=== PATIENT | female | born 1995 | race Caucasian/White ===

== ENCOUNTER 2017-10-12 15:19 | Emergency (ER) | payer OTHER ==
[2017-10-12 15:38] VITALS: BP 100/59
--- NOTE | 2017-10-12 15:55 | UC ---
Neck Pain HPI - HPI Summary HPI Summary: Pt c/o intermittent lymphadenopathy to right submandibular lymph node that pt states "reacts" when I she eats food. Pt reports that this issue began when she was in - History of Current Complaint Chief Complaint: UCGeneralIllness Stated Complaint: SWOLLEN GLAND Time Seen by Provider: 10/12/17 15:36 Hx Obtained From: Patient Hx Last Menstrual Period: JUL 2015 ?: No Mechanism Of Injury: No Known Trauma Timing: Intermittent Episodes Onset/Duration: Gradual Onset, Still Present Severity: Mild Location: Discrete At: - right submandibular lymph node Character: Sharp, Dull Aggravating Factors: Other: - eating Alleviating Factors: Nothing Associated Signs & Symptoms: Positive: Swelling - Risk Factors Meningitis Risk Factors: Negative - Allergies/Home Medications Allergies/Adverse Reactions: Allergies Allergy/AdvReac Type Severity Reaction Status Date / Time No Known Allergies Allergy Verified 10/12/17 15:38 PMH/Surg Hx/FS Hx/Imm Hx Previously Healthy: Yes Other History Of: Negative For: HIV, Hepatitis B, Hepatitis C - Surgical History Surgical History: Yes Surgery Procedure, Year, and Place: TONSILECTOMY - Family History Known Family History: Positive: Diabetes - Social History Occupation: Employed Full-time Lives: With Family Alcohol Use: None Substance Use Type: None Smoking Status (MU): Never Smoked Tobacco Have You Smoked in the Last Year: No Review Of Systems Constitutional: Positive: Negative Skin: Positive: Negative Eyes: Positive: Negative ENT: Positive: Other - lymphadenopathy Respiratory: Positive: Negative Cardiovascular: Positive: Negative Gastrointestinal: Positive: Negative Genitourinary: Positive: Negative Musculoskeletal: Positive: Negative Neurological: Positive: Negative Psychological: Positive: Negative All Other Systems Reviewed And Are Negative: Yes Physical Exam Triage Information Reviewed: Yes Appearance: Well-Appearing Vital Signs: Initial Vital Signs Temp 99.9 F 10/12/17 15:33 Pulse 77 10/12/17 15:33 Resp 16 10/12/17 15:33 BP 100/59 10/12/17 15:33 Pulse Ox 100 10/12/17 15:33 Vital Signs Reviewed: Yes Eye Exam: Normal ENT Exam: Normal Dental Exam: Other Dental: Positive: Other: - poor dentition Neck exam: Other Neck: Positive: Enlarged Nodes @ - right submandibular ~ 1.5 cm in diameter Respiratory Exam: Normal Cardiovascular Exam: Normal Musculoskeletal Exam: Normal Neurological Exam: Normal Psychological Exam: Normal Skin Exam: Normal Neck Pain Course/Dx - Differential Dx/Diagnosis Differential Dx/HQI/PQRI: Other - lymphadenopathy, salvary gland stone, blockage Provider Diagnoses: lymphadenopathy Discharge - Discharge Plan Condition: Stable Disposition: HOME Patient Education Materials: Lymphadenopathy (ED) Referrals: [facility] [place] [facility] REFERRAL [Outside] No Primary Care Phys,NOPCP [Primary Care Provider] - Additional Instructions: Please establish care with a PCP as soon as possible to follow up with your current complaint of lymphadenopathy.
== END 2017-10-12 16:07 | disposition home or self-care (01) ==
LOC: UCCORT 15:19
DX: R59.1 Generalized enlarged lymph nodes (principal)
CPT/HCPCS: 99211; G0463

== ENCOUNTER 2018-05-09 10:13 | Emergency (ER) | payer OTHER ==
--- OUTSIDE RECORDS SUMMARY | 2018-05-09 10:32 | XMS REPORT ---
:1995 External Reference #:[id number] Author Organization [facility] Address [address], [address] [place] [address] Phone [phone] Care Team Providers Name Role Phone Gomez Mcpherson MD Care Team Information Silk Screen Operator Unavailable Radha Jo MD Primary Care Physician Unavailable Payers Type Date Identification Numbers Payment Provider Subscriber Commercial Policy Number: [id number] [employer] Zoraida Schmidt PayID: [id number] [address] [place] [address] Problems Date Description Provider Status Onset: 03/09/2018 Cyst of left ovary Radha Jo MD Active Onset: 03/09/2018 Oropharyngeal dysphagia Radha Jo MD Active Onset: 03/09/2018 Constipation Radha Jo MD Active Onset: 03/28/2018 Gynecologic examination Barbara Helm CNM Active Family History Date Family Member(s) Problem(s) Comments Father Migraine Mother Heart Disease Social History Type Date Description Comments Marital Status Single Lives With Family Diet Patient follows no dietary restrictions Occupation Unemployed ETOH Use Rarely consumes alcohol Smoking Patient denies history of smoking Recreational Drug Use Denies Drug Use Daily Caffeine Current Caffeine User Contraceptive Methods Nexplanon Age 1st Joanna 16 Years Old # Partners in a Lifetime 1 STD's Genital Herpes Allergies, Adverse Reactions, Alerts Date Description Reaction Status Severity Comments 03/04/2018 NKDA active Medications Medication Date Status Form Strength Qnty SIG Indications Ordering Provider Colace 03/09/ Active Capsules 100mg 60caps 1 by mouth Radha 2018 twice daily as Sandro, needed for MD constipation No Active 06/06/ Hx Unknown Medications 2017 - 2017 Vital Signs Date Vital Result Comment 05/03/2018 BP Systolic 101 mmHg BP Diastolic 66 mmHg Body Temperature 98.6 F Heart Rate 76 /min Respiratory Rate 16 /min Height 63.25 inches 5'3.25" Weight 129.00 lb BMI (Body Mass Index) 22.7 kg/m2 BSA (Body Surface Area) 1.61 m2 [place] body weight in kilograms 53 O2 % BldC Oximetry 98 % 03/28/2018 BP Systolic 100 mmHg BP Diastolic 52 mmHg Body Temperature 98.2 F Heart Rate 70 /min Respiratory Rate 16 /min Height 63.25 inches 5'3.25" Weight 129.00 lb BMI (Body Mass Index) 22.7 kg/m2 BSA (Body Surface Area) 1.61 m2 [place] body weight in kilograms 53 O2 % BldC Oximetry 99 % 03/09/2018 BP Systolic Sitting Right Arm 107 mmHg BP Diastolic Sitting Right Arm 67 mmHg Body Temperature 98.7 F Heart Rate 67 /min Respiratory Rate 20 /min Height 63.25 inches 5'3.25" Weight 126.00 lb BMI (Body Mass Index) 22.1 kg/m2 BSA (Body Surface Area) 1.59 m2 [place] body weight in kilograms 53 O2 % BldC Oximetry 98 % Results Test Date Test Result H/L Range Note Throat Culture 03/09/2018 Throat Culture NORMAL THROAT FL 1, 2 Complete Complete <SEE NOTE> Urine Dipstick 03/09/2018 Ua Color [place] Yellow Ua Clarity Clear Clear Ua Leuko Negative Negative Ua Nitrite Negative Negative Ua Urobilinogen 0.2 0.2 - 1.0 E.U./dL Ua Protein Positive (+) Negative Ua PH 7.0 6.5-7.5 Ua Blood Positive (+++) Negative Ua Specific [place] 1.010 1.010-1.030 Ua Ketones Negative Negative Ua Bilirubin Negative Negative Ua Glucose Negative Negative 1 J02.9 2 NORMAL THROAT PREETI Procedures Date CPT Code Description Status 04/21/2013 75009 Holter Monitor 24HR Inter/Report Completed 03/15/2007 89964 Fracture-closed finger or thumb Completed Encounters Type Date Location Provider CPT E/M Dx Office Visit 03/09/2018 8:40a [place] [address] N83.292 R13.13 K59.00 Office Visit 05/05/2007 9:30a [place] [address] 732.4 Office Visit 02/08/2007 2:45p [place] [address] 732.4 Office Visit 11/11/2006 10:00a [place] [address] 732.4 Office Visit 10/07/2006 9:45a [place] [address] 732.4 Plan of Care Future Appointment(s):05/18/2018 10:00 am - Radha Jo MD at Primary Care [id number]/03/2018 - Barbara Helm, CNMN83.201 Unspecified ovarian cyst, right sideNew Xrays:Ultrasound, Pelvic W/ Endovaginal Non-OBComments:L ovarian cyst resolved R ovarian cyst seen on sono 2.9 x 2.1 x 2.7 cm.Discussed result with pt.Happy with Nexplanon.Intermittent pelvic pain with intercourse has improved with awareness to position and NSAIDs if needed.Agrees to repeat sono in Jul 2018.
--- OUTSIDE RECORDS SUMMARY | 2018-05-09 10:32 | XMS REPORT ---
:1995 External Reference #:[id number] Author Organization [facility] Address [address], [address] [place] [address] Phone [phone] Care Team Providers Name Role Phone Gomez Mcpherson MD Care Team Information Public Affairs Officer Unavailable Radha Jo MD Primary Care Physician Unavailable Payers Type Date Identification Numbers Payment Provider Subscriber Commercial Policy Number: [id number] [employer] Zoraida Schmidt PayID: [id number] [address] [place] [address] Problems Date Description Provider Status Onset: 03/09/2018 [...] Caffeine User Contraceptive Methods Nexplanon Age 1st [place] 16 Years Old # Partners in a [...] 2017 Vital Signs Date Vital Result Comment 03/28/2018 BP Systolic 100 mmHg BP Diastolic 52 mmHg Body Temperature 98.2 F Heart Rate 70 /min Respiratory Rate 16 /min Height 63.25 inches 5'3.25" Weight 129.00 lb BMI (Body Mass Index) 22.7 kg/m2 BSA (Body Surface Area) 1.61 m2 [place] body weight in kilograms 53 O2 % BldC Oximetry 99 % 03/09/2018 BP Systolic Sitting Right Arm 107 mmHg BP Diastolic Sitting Right Arm 67 mmHg Body Temperature 98.7 F Heart Rate 67 /min Respiratory Rate 20 /min Height 63.25 inches 5'3.25" Weight 126.00 lb BMI (Body Mass Index) 22.1 kg/m2 BSA (Body Surface Area) 1.59 m2 [place] body weight in kilograms 53 O2 % [...] Ua Blood Positive (+++) Negative Ua Specific [place] 1.010 1.010-1.030 Ua Ketones Negative Negative Ua Bilirubin Negative Negative Ua Glucose Negative Negative 1 J02.9 2 NORMAL THROAT PREETI Procedures Date CPT Code Description Status 04/21/2013 27868 Holter Monitor 24HR Inter/Report Completed 03/15/2007 44287 Fracture-closed finger or thumb Completed Encounters Type Date Location Provider CPT E/M Dx Office Visit 03/09/2018 8:40a [place] [address] N83.292 R13.13 K59.00 Office Visit 05/05/2007 9:30a [place] [address] 732.4 Office Visit 02/08/2007 2:45p [place] [address] 732.4 Office Visit 11/11/2006 10:00a [place] [address] 732.4 Office Visit 10/07/2006 9:45a [place] [address] 732.4 Plan of Care Future Appointment(s):05/18/2018 10:00 am - Radha Jo MD at Primary Care [id number]/28/2018 - Barbara Helm [id number] 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 Fu in 4 weeks with repeat pelvic sonogram.
[2018-05-09 10:45] VITALS: BP 116/52
[2018-05-09] MEDS ORDERED: Fluorescein Sod TOPICAL 0.6* 0.6 MG TEST OPHTHALMIC ONE (10:50)
[2018-05-09] MEDS ORDERED: BSS OPTH.SOL* BTL ONE (10:50)
[2018-05-09] MEDS ORDERED: Tetracaine 0.5% OPTH.SOL 4 ML* 1 DROP BTL ONE (10:50)
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
== END 2018-05-09 11:28 | disposition home or self-care (01) ==
LOC: UCCORT 10:13
DX: S05.8X1A Other injuries of right eye and orbit, initial encounter (principal); W50.0XXA Accidental hit or strike by another person, initial encounter; Y93.89 Activity, other specified; Y92.009 Unspecified place in unspecified non-institutional (private) residence as the place of occurrence of the external cause
CPT/HCPCS: 99212; A9270-GY; G0463

== ENCOUNTER 2023-05-21 17:39 | Inpatient (IN) ==
[2023-05-21] MEDS ORDERED: Buffered Lidocaine 1% SYRIN 1 ml INTRADERM ONE (17:58)
[2023-05-21] MEDS ORDERED: Dinoprostone 10 MG VAG.SUPP VAGINAL ONE (17:58)
[2023-05-21] MEDS ORDERED: Promethazine INJ(RESTRICTED) 25 MG/ML 1 ml VIAL IV PRN (17:58)
[2023-05-21] MEDS ORDERED: Lactated Ringers 1000 ml BAG 1,000 ML IV ONE (17:58)
[2023-05-21 19:16] LABS: Urine Benzodiazepine Screen None Detected (None Detect); Urine Opiates Screen None Detected (None Detect)
[2023-05-22 08:39] LABS: ABS Lymphocytes 1.4 10^3/uL (1.0-4.8); ABS Monocytes 0.6 10^3/uL (0.0-0.9); ABS Neutrophils 7.6 10^3/uL (1.5-7.6); Eosinophil % 0.4 %; Hematocrit 38.1 % (35-45); Lymphocyte % 14.5 %; Mean Corpuscular Hemoglobin 28.8 pg (27-33); Mean Corpuscular Volume 84.7 fL (80-97); Mean Platelet Volume 9.9 fL (7.5-11.2); Nucleated Red Blood Cells % 0.1 /100 WBC (0.0-0.4); Platelet Count 140 10^3/uL (150-450); White Blood Count 9.6 10^3/uL (3.8-11.8)
[2023-05-22] MEDS ORDERED: OBEPIDURAL (200 ML) 200 ML EPIDURAL ONE (08:54)
[2023-05-22] MEDS ORDERED: Lidocaine 1% w EPI 1:200,000 SDV 30 ML VIAL ONE (08:54)
[2023-05-22] MEDS: Lactated Ringers 1000 ml BAG 1,000 ML IV SCH ×2 (09:05→09:34)
[2023-05-22] MEDS ORDERED: Lactated Ringers 1000 ml BAG 500 ML IV PRN ×2 (09:45)
[2023-05-22] MEDS ORDERED: Phenylephrine 40 mcg/mL 10mL (400mcg) SYRINGE IV PUSH PRN ×2 (09:45)
[2023-05-22] MEDS ORDERED: Sodium Citrate/Citric Acid LIQ 15 ML UDC PO PRN (09:45)
[2023-05-22] MEDS ORDERED: Lactated Ringers 1000 ml BAG 1,000 ML IV ONE (09:45)
[2023-05-22] MEDS ORDERED: Lactated Ringers 1000 ml BAG 1,000 ML IV SCH ×2 (10:00→16:00)
[2023-05-22] MEDS ORDERED: OBEPIDURAL (200 ML) 200 ML EPIDURAL SCH (10:00)
[2023-05-22 10:16] LABS: Urine Appearance Clear; Urine Bilirubin Negative (Negative); Urine Blood Negative (Negative); Urine Color Straw; Urine Glucose Negative (Negative); Urine Ketones Trace (Negative); Urine Nitrite Negative (Negative); Urine Protein Negative (Negative); Urine Specific Gravity 1.005 (1.002-1.030); Urine Urobilinogen Negative (Negative)
[2023-05-22] MEDS ORDERED: Oxytocin in LR 20,000 MILLI.UNIT/1,000 ML BAG IV SCH ×2 (12:55→16:00)
[2023-05-22 13:07] LABS: Hepatitis B Surface Antigen Nonreactive (Nonreactive)
[2023-05-22] MEDS ORDERED: Lidocaine 1% VIAL 10 MG/ML 30 ML VIAL ONE (15:39)
[2023-05-22] MEDS: Witch Hazel PAD JAR TOPICAL PRN (17:32)
[2023-05-22] MEDS: Dibucaine 1% OINT 28.35 GM TUBE PR PRN (17:32)
[2023-05-23 07:30] LABS: ABS Eosinophils 0.1 10^3/uL (0.0-0.5); ABS Lymphocytes 1.3 10^3/uL (1.0-4.8); ABS Monocytes 0.6 10^3/uL (0.0-0.9); Eosinophil % 0.8 %; Hematocrit 34.5 % (35-45); Hemoglobin 11.9 g/dL (11.5-14.3); Mean Corpuscular Hemoglobin 29.5 pg (27-33); Mean Corpuscular Hgb Conc 34.5 g/dL (31-36); Mean Corpuscular Volume 85.5 fL (80-97); Mean Platelet Volume 9.7 fL (7.5-11.2); Platelet Count 129 10^3/uL (150-450); Red Blood Count 4.04 10^6/uL (3.63-4.92); Red Cell Distribution Width 14.2 % (12-17)
[2023-05-23 11:53] VITALS: BP 115/67
[2023-05-23] MEDS: Witch Hazel PAD JAR TOPICAL PRN (14:31)
[2023-05-23] MEDS: Dibucaine 1% OINT 28.35 GM TUBE PR PRN (14:31)
== END 2023-05-23 18:25 | disposition home or self-care (01) | DRG 560 ==
LOC: MCHOBOUT 17:39 → MCHOB 18:12
PROVIDERS: ADMIT Registered Nurse; ATTEND Registered Nurse

== ENCOUNTER 2024-09-06 10:50 | Inpatient (IN) ==
[2024-09-06] MEDS ORDERED: Lidocaine 1% VIAL 10 MG/ML 30 ML VIAL INJ PRN (11:36)
[2024-09-06 13:05] LABS: Hematocrit 37.2 % (35-45); Hemoglobin 12.5 g/dL (11.5-14.3); Mean Corpuscular Hemoglobin 28.3 pg (27-33); Mean Corpuscular Hgb Conc 33.5 g/dL (31-36); Mean Corpuscular Volume 84.3 fL (80-97); Red Blood Count 4.41 10^6/uL (3.63-4.92); Red Cell Distribution Width 15.2 % (12-17); White Blood Count 8.4 10^3/uL (3.8-11.8)
[2024-09-06 13:20] LABS: Urine Benzodiazepine Screen None Detected (None Detect); Urine Cannabinoids Screen None Detected (None Detect); Urine Opiates Screen None Detected (None Detect)
[2024-09-06 13:25] LABS: ABS Eosinophils 0.1 10^3/uL (0.0-0.5); ABS Lymphocytes 1.4 10^3/uL (1.0-4.8); ABS Monocytes 0.6 10^3/uL (0.0-0.9); ABS Neutrophils 6.4 10^3/uL (1.5-7.6); Eosinophil % 0.8 %; Lymphocyte % 16.2 %; Mean Platelet Volume 10.1 fL (7.5-11.2); Nucleated Red Blood Cells % 0.1 %/100WBC (0.0-0.8); Platelet Count 154 10^3/uL (150-450)
[2024-09-06] MEDS: Lactated Ringers 1000 ml BAG 1,000 ML IV SCH ×2 (16:13→22:59)
[2024-09-06] MEDS: Oxytocin in LR 20,000 MILLI.UNIT/1,000 ML BAG IV SCH (17:54)
[2024-09-06] MEDS: OBEPIDURAL (200 ML) 200 ML EPIDURAL ONE (19:08)
[2024-09-06] MEDS ORDERED: Phenylephrine 40 mcg/mL 10mL (400mcg) SYRINGE IV PUSH PRN ×2 (19:25)
[2024-09-06] MEDS ORDERED: Sodium Citrate/Citric Acid LIQ 15 ML UDC PO PRN (19:25)
[2024-09-06 20:32] LABS: Urine Appearance Clear; Urine Bilirubin Negative (Negative); Urine Blood Negative (Negative); Urine Color Colorless; Urine Glucose Negative (Negative); Urine Ketones Negative (Negative); Urine Nitrite Negative (Negative); Urine Protein Negative (Negative); Urine Specific Gravity 1.005 (1.002-1.030); Urine Urobilinogen Negative (Negative); Urine pH 6.5 (5.0-8.0)
[2024-09-06] MEDS: Lactated Ringers 1000 ml BAG 1,000 ML IV ONE (21:18)
[2024-09-06] MEDS: Lidocaine/Epinephrin 1.5%/200 5 ML AMP INJ ONE (22:59)
[2024-09-06] MEDS: OBEPIDURAL (200 ML) 200 ML EPIDURAL SCH (22:59)
[2024-09-06] MEDS ORDERED: Lactated Ringers 1000 ml BAG 1,000 ML IV SCH (23:00)
[2024-09-06] MEDS: Phenylephrine 40 mcg/mL 10mL (400mcg) SYRINGE ONE (23:00)
[2024-09-06] MEDS: miSOPROStol 100 mcg TAB PO ONE (23:02)
[2024-09-06] MEDS: Dibucaine 1% OINT 28.35 GM TUBE PR PRN (23:22)
[2024-09-06] MEDS: Witch Hazel PAD JAR TOPICAL PRN (23:22)
[2024-09-07] MEDS: Oxytocin in LR 20,000 MILLI.UNIT/1,000 ML BAG IV SCH (03:50)
[2024-09-07 06:43] LABS: ABS Lymphocytes 1.2 10^3/uL (1.0-4.8); ABS Monocytes 0.7 10^3/uL (0.0-0.9); Eosinophil % 0.3 %; Hematocrit 33.8 % (35-45); Hemoglobin 11.5 g/dL (11.5-14.3); Lymphocyte % 13.7 %; Mean Corpuscular Hemoglobin 28.8 pg (27-33); Mean Corpuscular Volume 84.9 fL (80-97); Mean Platelet Volume 10.6 fL (7.5-11.2); Platelet Count 119 10^3/uL (150-450); Red Blood Count 3.98 10^6/uL (3.63-4.92); Red Cell Distribution Width 15.1 % (12-17)
[2024-09-08 07:32] VITALS: BP 108/69
== END 2024-09-08 14:20 | disposition home or self-care (01) | DRG 560 ==
LOC: MCHOBOUT 10:50 → MCHOB 11:49
PROVIDERS: ADMIT Midwife; ATTEND Midwife